=== PATIENT | female | born 1955 | race Two or more races ===

== ENCOUNTER → 2016-07-27 | Outpatient (CLI) | payer OTHER ==
--- NOTE | 2016-07-27 17:52 | RADRPT ---
PROCEDURE: XR Knees. CLINICAL INDICATION: Bilateral knee pain. TECHNIQUE: Total of six views. Frontal, oblique, and lateral views of both knees. COMPARISON: No prior study is available for comparison. FINDINGS: There is no fracture or dislocation. The soft tissues are normal. There are degenerative changes with osteophytes arising from all 3 joint compartment margins bilater ally. There is bilateral medial joint compartment narrowing, subarticular sclerosis, and deformity. There is chondrocalcinosis. There is no lytic or blastic lesion. There is no radiopaque foreign body. IMPRESSION: 1. Severe degenerative changes of both knees. 2. No acute abnormality. RPTAT: QQ .Brian Paul MD, MD Date Time Electronically viewed and signed by .Brian Paul MD, on 07/27/2016 17:52 .R/
--- NOTE | 2016-07-28 04:42 | HKNOTE ---
DATE OF SERVICE: 07/27/2016 REFERRING PHYSICIAN: 1. Dr. Ashley Nicole. 2. Dr. Isabel West, [address] [place], [place] [address]. MAIN COMPLAINT: Pain in both knees. HISTORY OF MAIN COMPLAINT: Patient is a 61-year-old female who complains of pain in both knees blanca he has been present for 20 years. There has been no history of injury to the knee. She has had prog ressively increasing pain in the knees. The left knee is worse than the right knee and she has been referred here today predominantly for reevaluation of her left knee. The patient has had multiple cortisone injections into both knees. The last was in September of 2015, w antoni gave her no relief at all. She states she has had at least 5 cortisone injections into the lef t knee. PRESENT COMPLAINTS: The pain is described as severe over the past 6 months. The pain is mainly loc alized to her left knee. She does note, however, that she occasionally gets pain radiating from her left buttocks to the knee. She has no numbness or tingling in her legs. She never had a history o f problems with her lower back. The pain in the left knee is currently described as "severe" and is aggravated by walking, weightbearing and stair climbing. She does get night pain which wakes her u p. She takes Motrin and Tylenol for the pain. This does not help her at all. At present, nothing seems to give her any relief of the pain. On a flat and level surface, she can walk no more than 1 block at a time. She uses a walker at all times. She gets pain with every step that she takes. S he limps most of the time. She does not have a shoe lift. She can clip her toenails and tie her sh oelaces. PAST ORTHOPEDIC HISTORY PREVIOUS ORTHOPEDIC OPERATIONS: None. PRIOR CORTISONE INTAKE: As above. ALCOHOL INTAKE: None. OTHER JOINT PROBLEMS: None. BLOOD TESTS FOR ARTHRITIS: None. PRIOR INJURIES TO HIPS OR KNEES: None. WORK STATUS: Not applicable. PAST MEDICAL HISTORY: 1. Hypertension. 2. Diabetes. 3. Hypercholesterolemia. 4. Morbid obesity. PAST SURGICAL HISTORY: section. DRUG ALLERGIES: NONE. MEDICATIONS: 1. Ibuprofen 800 mg twice a day. 2. Metoprolol 50 mg once or twice a day. 3. Hydrochlorothiazide 50 mg once a day. Loratadine 10 mg once a day. 4. Metformin 500 mg once a day. 5. Simvastatin 40 mg once a day. FAMILY HISTORY: Both parents at unstated ages and of unstated causes. SYSTEMS REVIEW: Prone to severe headaches and dizzy spells, excess urination, excess night urinatio n, tingling sensations in her hands. Otherwise, entirely negative. HABITS: Patient does not smoke or drink alcoholic beverages. 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 Isabel West, [address] [place], [place] [address]. PHYSICAL EXAMINATION GENERAL: The patient comes in with her daughter. Her daughter translates for her. The patient has a walker. She can barely walk. It is almost impossible to get her up on the examination couch but we persevered and finally got her up. She refused to have her blood pressure taken. VITAL SIGNS: Height 5 feet, weight 253 pounds. HIPS: Both hips have a full range of motion without pain. LEFT KNEE: The left knee shows varus alignment. Active and passive extension lacks 20 degrees. Acti ve and passive flexion is 100 degrees. The medial and lateral collateral ligaments and cruciate liga ments are intact. Adolfo test is negative. There is 6+ crepitus at the knee; none at the patella. There is no effusion, tenderness, scarring, or cysts. The patella tracks normally. There is no tend erness on the articular surface of the patella or in the patellar groove. The Q angle is normal. RIGHT KNEE: The right knee shows varus alignment. Active and passive extension lacks 10 degrees. Ac tive and passive flexion is to 100 degrees. The medial and lateral collateral ligaments and cruciate ligaments are intact. Adolfo test is negative. There is 6+ crepitus at the knee; none at the bernard la. There is no effusion, tenderness, scarring, or cysts. The patella tracks normally. There is n o tenderness on the articular surface of the patella or in the patellar groove. The Q angle is jennifer l. IMAGING: Plain x-rays of her left knee obtained today were reviewed (3 views). These show exceedin gly severe degenerative osteoarthritis of the left knee affecting most predominantly the medial comp artment. Exceedingly severe degenerative osteoarthritis of the medial compartment and patellofemora l joint with gaet-tg-pmyj contact and erosion. Osteophyte formation, subchondral sclerosis. Osteop orosis. DIAGNOSES 1. Exceedingly severe degenerative osteoarthritis of the left knee. 2. Degenerative osteoarthritis of the right knee. 3. Hypertension. 4. Diabetes. 5. Hypercholesterolemia. MANAGEMENT: The patient is advised that she most certainly is a candidate for a knee replacement op eration on the left side and eventually also on the right side. The operation was discussed with her and her daughter in a fair amount of detail. The patient speak s no Prydeinig. The daughter translated for he. The patient was given my manual titled "Arthritis of the Knee Joint" which contains information conc erning the various alternatives of treatment. It includes various forms of conservative treatment, i ncluding the use of nonsteroidal anti-inflammatory medications and their dangers. Various surgical a lternatives are discussed. The technique of total knee replacement is discussed in detail, including possible complications. Included also is a section on the possible complications of blood transfusi on, a section on postoperative precautions, and an exercise program to follow at home after total kn ee replacement. The long-term care of a total knee replacement implant is also covered in detail. Th e patient was instructed to read this manual in its entirety since it is, in and of itself, a form o f informed consent. After reading this manual, the patient will make a list of further questions mery t may not have been covered adequately. The patient was further advised that this manual, although e xhaustive in nature, is only intended to supplement and complement a one-on-one discussion with me. Daughter was referred to my website, [employer]. FINAL DIAGNOSES 1. Exceedingly severe degenerative osteoarthritis of the left knee. 2. Degenerative osteoarthritis of the right knee. 3. Hypertension. 4. Diabetes. 5. Hypercholesterolemia. The patient's surgery will be scheduled to be performed in the near future. Dictated By: LUBA RUIZ/JASMETE Conf#: [id number] DID#: [id number] CC: Ashley Nicole;*EndCC*
--- NOTE | 2016-07-28 04:43 | HKNOTE ---
DATE OF SERVICE: 07/27/2016 Dr. Ashley Nicole Dear Dr. Nicole, Thank you for referring Emy Ayers who was seen in my office today complaining of pain her lef t knee. She has exceedingly severe arthritis of the left knee. She is a candidate for knee replacement surgery, which will be scheduled to be performed in the near future. Thank you for confidence in referring her to my care. Enclosed a copy of my office notes for your records. With warmest regards, Dictated By: LUBA RUIZ/JASMEET Conf#: [id number] DID#: [id number]
--- NOTE | 2016-07-28 04:44 | HKNOTE ---
DATE OF SERVICE: 07/27/2016 Dr. Isabel West [address] [address], [place] [address] West, Thank you for referring Emy Ayers who was seen in my office today complaining of pain her lef t knee. She has exceedingly severe arthritis of the left knee. She is a candidate for knee replacement surgery, which will be scheduled to be performed in the near future. Thank you for confidence in referring her to my care. Enclosed a copy of my office notes for your records. With warmest regards, Dictated By: LUBA HERNANDEZ MD HH/NTS Conf#: [id number] DID#: [id number]
== END | disposition home or self-care (01) ==
LOC: HKI 15:22
DX: M25.562 Pain in left knee (principal); M13.862 Other specified arthritis, left knee
CPT/HCPCS: 73562; Z7500; G0463

== ENCOUNTER → 2016-08-24 | Outpatient (CLI) | payer OTHER ==
[~2016-08-24] MED LIST: HYDR50TA3 PO; METF500T4 PO; METO-429 PO; SIMV40TA7 PO
--- NOTE | 2016-08-24 18:25 | HKNOTE ---
DATE OF SERVICE: 08/24/2016 Patient comes in for preoperative evaluation. She is scheduled to have a left total knee replacemen t on 08/25/2016. She has been cleared for surgery by Dr. Isabel West. She has not given any blood for autotransfusion. She understands the risks associated with hospital blood. She is agreeable t o using hospital blood if needed. The patient still does not speak a word of Nigerien and her daught er who came with her today and she speaks perfect Romansh and Nigerien. Patient has no further questions to ask me. She says that my therapy administrative assistant, Reynaldo, answered all her q uestions. Dictated By: LUBA RUIZ/NTS Conf#: [id number] DID#: [id number]
== END | disposition home or self-care (01) ==
LOC: HKI 14:18
DX: Z01.818 Encounter for other preprocedural examination (principal)
CPT/HCPCS: G0463

== ENCOUNTER 2016-08-25 05:40 | Inpatient (IN) | payer OTHER ==
[2016-08-25] VITALS (20 sets, daily range): BP systolic 104–147; BP diastolic 47–72; PULSE 60–97; RESP 12–19; Ht 152.4 cm; Wt 115.8 kg
[~2016-08-25] VITALS: Ht 152.4 cm; Wt 115.8 kg
[2016-08-25] MEDS ORDERED: VANCOMYCIN 1 GM (PMX) 250 ML IVPB ONE (06:00)
[2016-08-25] MEDS ORDERED: TRANEXAMIC ACID 2,000 MG in SOD CHLORIDE 0.9% 100 ML IVPB ONE (06:00)
[2016-08-25] MEDS ORDERED: DEXAMETHASONE 4 MG/ML 1 ML INJ IV ONE (06:00)
[2016-08-25] MEDS ORDERED: LANSOPRAZOLE 30 MG CAP PO ONE (06:00)
[2016-08-25] MEDS ORDERED: oxyCODONE (CR) 10 MG TAB [oxyCONTIN] PO ONE (06:00)
[2016-08-25] MEDS ORDERED: ACETAMINOPHEN 1000MG/100ML IV 100 ML IVPB ONE (06:00)
[2016-08-25] MEDS ORDERED: LACTATED RINGER'S 1,000 ML IV* SCH (06:00)
[2016-08-25] MEDS ORDERED: CELECOXIB 200 MG CAP PO ONE (06:00)
[2016-08-25] MEDS ORDERED: ONDANSETRON 4 MG INJ IV ONE (06:00)
[2016-08-25] MEDS ORDERED: SUCCINYLCHOLINE CHLORIDE 100 MG/5 ML SYG IV ONE (07:00)
[2016-08-25] MEDS ORDERED: BUPIVACAINE 0.25%/EPI (SDV) 30 ML INJ ONE ×2 (07:06→08:57)
[2016-08-25] MEDS ORDERED: METHYLENE BLUE 10 MG/ML VIAL ONE (07:06)
[2016-08-25] MEDS ORDERED: ROPIVACAINE 0.2% 100 ML ONE (07:06)
[2016-08-25] MEDS ORDERED: POLYMYXIN B 500000 UNIT INJ ONE (07:07)
[2016-08-25] MEDS ORDERED: VANCOMYCIN 1 GM INJ ONE (07:07)
[2016-08-25] MEDS ORDERED: BACITRACIN 50000 UNITS INJ ONE (07:09)
[2016-08-25] MEDS ORDERED: METO-429 PO (07:10)
[2016-08-25] MEDS ORDERED: METF500T4 PO (07:10)
[2016-08-25] MEDS ORDERED: HYDR50TA3 PO (07:10)
[2016-08-25] MEDS ORDERED: SIMV40TA7 PO (07:10)
[2016-08-25] MEDS ORDERED: NEOSTIGMINE 3 MG/3 ML SYRINGE ONE (07:16)
[2016-08-25] MEDS ORDERED: GLYCOPYRROLATE 0.4 MG INJ ONE (07:16)
[2016-08-25] MEDS ORDERED: LIDOCAINE 2% (SDV) 5 ML INJ ONE (07:16)
[2016-08-25] MEDS ORDERED: ROCURONIUM 50 MG INJ ONE (07:16)
[2016-08-25] MEDS ORDERED: FENTAnyl 50 MCG/ML VIAL ONE ×2 (07:16→09:39)
[2016-08-25] MEDS ORDERED: MIDAZOLAM 1 MG/ML 2 ML INJ ONE (07:16)
[2016-08-25] MEDS ORDERED: PROPOFOL 20 ML ONE (07:16)
[2016-08-25] MEDS ORDERED: DEXAMETHASONE 4 MG/ML 1 ML INJ ONE (07:22)
[2016-08-25] MEDS ORDERED: LIDOCAINE 2%/EPI 30 ML INJ ONE (07:22)
[2016-08-25] MEDS ORDERED: ONDANSETRON 4 MG INJ ONE (07:22)
[2016-08-25] MEDS ORDERED: ATROPINE 1 MG/10 ML SYRINGE IV PRN (07:30)
[2016-08-25] MEDS ORDERED: FENTAnyl 50 MCG/ML VIAL IV PRN ×2 (07:30)
[2016-08-25] MEDS ORDERED: ONDANSETRON 4 MG INJ IV PRN (07:30)
[2016-08-25] MEDS ORDERED: LABETALOL HCL 20MG INJ IV PRN (07:30)
[2016-08-25] MEDS ORDERED: HYDROmorphONE (0.2 MG/ML) 10ML SYG IV PRN ×3 (07:30)
[2016-08-25] MEDS ORDERED: DIPHENHYDRAMINE 50 MG INJ IV PRN (07:30)
[2016-08-25] MEDS ORDERED: OXYCODONE/ACETAMINOPHEN (5/325) TAB PO PRN ×2 (07:30)
[2016-08-25] MEDS ORDERED: MEPERIDINE 25 MG INJ IV PRN (07:30)
[2016-08-25] MEDS ORDERED: morphine (1 MG/ML) 10ML SYRINGE IV PRN ×3 (07:30)
[2016-08-25] MEDS ORDERED: EPHEDrine SULFATE 50 MG/5 ML SYG IV PRN (07:30)
[2016-08-25] MEDS ORDERED: MIDAZOLAM 1 MG/ML 2 ML INJ IV PRN (07:30)
[2016-08-25] MEDS ORDERED: hydrALAzine 20 MG INJ IV PRN (07:30)
[2016-08-25] MEDS ORDERED: TOBRAMYCIN 1.2 GM POWDER ONE (07:40)
[2016-08-25] MEDS ORDERED: TRIAMCINOLONE ACET 40 MG/ML INJ ONE (07:40)
[2016-08-25] MEDS ORDERED: KNEE PAIN COCKTAIL VANCO INJ SCH ×6 (08:00)
[2016-08-25] MEDS ORDERED: SOD CHLORIDE 0.9% 50 ML, TRANEXAMIC ACID 2,000 MG IRR SCH ×2 (08:00)
[2016-08-25] MEDS ORDERED: hydrALAzine 20 MG INJ ONE (08:49)
[2016-08-25] MEDS ORDERED: ROPIVACAINE 0.2% 100ML BAG INJ ONE (09:51)
--- NOTE | 2016-08-25 10:50 | RADRPT ---
PROCEDURE: Left knee x-ray. CLINICAL INDICATION: Intraoperative localization for knee replacement procedure. TECHNIQUE: 3 images obtained intraoperatively during the intraoperative procedure. COMPARISON: None available FINDINGS: 3 images were obtained intraoperatively for localization during the procedure. The procedure was pe rformed by Dr. Garcia; 7 seconds of intraoperative fluoroscopy was used. Surgical hardware is se en in place. No fracture is identified. IMPRESSION: 3 intraoperative images and 7 seconds of fluoroscopy used during left total knee replacement. Hardware in place. No fracture identified. RPTAT:HGDB .Jose Angel House MD, MD Date Time Electronically viewed and signed by .Jose Angel House MD, MD on 08/25/2016 10:50 .B/
[2016-08-25] MEDS ORDERED: FUROSEMIDE 20 MG INJ ONE (11:05)
--- NOTE | 2016-08-25 12:28 | RADRPT ---
PROCEDURE: Right knee x-ray. CLINICAL INDICATION: Intraoperative localization for knee replacement procedure. TECHNIQUE: Lateral image obtained intraoperatively during the intraoperative procedure. COMPARISON: None available FINDINGS: Lateral image was obtained intraoperatively for localization during the procedure. The procedure wa s performed by Dr. Garcia; Surgical hardware is seen in place. No fracture is identified. IMPRESSION: Intraoperative lateral image obtained during total knee replacement Hardware in place. No fracture identified RPTAT:DB .Jose Angel House MD, MD Date Time Electronically viewed and signed by .Jose Angel House MD, on 08/25/2016 12:28 .B/
[2016-08-25] MEDS ORDERED: DEXTROSE 5%-LR 1,000 ML IV SCH (12:53)
[2016-08-25] MEDS ORDERED: TRANEXAMIC ACID IVPB ONE ×4 (13:00)
[2016-08-25] MEDS ORDERED: SOD CHLORIDE 0.9% IVPB ONE ×4 (13:00)
[2016-08-25] MEDS ORDERED: DOCUSATE SODIUM 100 MG CAP PO ONE (13:00)
[2016-08-25] MEDS ORDERED: DIPHENHYDRAMINE 50 MG INJ IM PRN (13:00)
[2016-08-25] MEDS ORDERED: NALOXONE (0.4 MG/ML) INJ IV PRN (13:00)
[2016-08-25] MEDS ORDERED: MEPERIDINE 10 MG/ML 30 ML PCA IV PRN (13:00)
[2016-08-25] MEDS ORDERED: MAGNESIUM HYDROXIDE 30ML CUP PO PRN (13:00)
[2016-08-25] MEDS ORDERED: HYDROmorphONE 0.2 MG/ML PCA IV PRN (13:00)
[2016-08-25] MEDS ORDERED: BISACODYL 10 MG SUPP PR PRN (13:00)
[2016-08-25] MEDS ORDERED: BETHANECHOL 25 MG TAB PO PRN (13:00)
[2016-08-25] MEDS ORDERED: ZOLPIDEM 5 MG TAB PO PRN (13:00)
[2016-08-25] MEDS ORDERED: COUMADIN NOTE XX SCH (13:00)
[2016-08-25] MEDS ORDERED: SENNA/DOCUSATE NA (8.6MG/50MG) TAB PO PRN (13:00)
[2016-08-25] MEDS ORDERED: oxyCODONE 5 MG TAB PO PRN ×2 (13:00)
[2016-08-25] MEDS ORDERED: NA PHOSPHATE/BIPHOS 133 ML ENEMA PR PRN (13:00)
[2016-08-25] MEDS ORDERED: ASPIRIN (EC) 325 MG TAB PO ONE (13:00)
--- NOTE | 2016-08-25 13:01 | PDOCDIS ---
Discharge Instructions DIAGNOSIS Discharge Diagnosis: Status post left total knee replacement CONDITION Patient Condition: Stable HOME CARE INSTRUCTIONS: Diet Instructions: Regular ACTIVITY: Activity Restrictions: Slowly Increase Activity Rest between Activity Avoid heavy lifting No Sexual Activity Do not Drive Do not operate Machinery Avoid Heavy Housework Keep Limb Elevated Weight Bearing (As tolerated. Use of front wheeled walker if needed.) Bathing Restrictions: Shower (With Tegaderm dressing applied before shower. After area has been dried after shower, may remove Tegaderm. Do this daily until maryam are removed around 10 days postop.) FOLLOW UP/APPOINTMENTS Appointments September 14 at 2:45 PM. NANCY LLANOS PA-C Aug 25, 2016 13:01
--- NOTE | 2016-08-25 13:03 | DS ---
Date/Time of Note Date/Time of Note DATE: 08/25/16 TIME: 13:01 Discharge Summary Admission/Discharge Info Admit Date/Time Aug 25, 2016 at 05:40 Discharge Date/Time Aug 28, 2016 Final Diagnosis Status post left total knee replacement. Patient Condition: Stable Hospital Course On the day of admission, the patient underwent left total knee arthroplasty Intraoperative complications: None Postoperative complications: None The patient was given prophylactic antibiotics and anticoagulants. On the day of surgery and first postoperative day patient was started on gait training and was taught usual restrictions following knee replacement Suction drain removed on the first postoperative day and the dressings were changed. The wound was found to be clean and healing well. There was no sign of infection. Pain cocktail given. On the second postoperative day, patient continued with inpatient PT. Dressings were changed. Wound was found to be clean and healing well. No signs of infection. Pain cocktail given. There was some luis alfredo-incisional erythema so as precaution, vancomycin was administered. On the day of discharge, the wound was clean and healing well; there was no sign of infection. The dressings were changed. Pain cocktail was given and cocktail drains were removed. Discharge Temperature: 98.2 Discharge White Blood Cell Count: 6.8 Discharge Hemoglobin: 10.7 The patient was discharged home. Arrangements were made for visiting nurses and home health/physical therapy. The patient will be seen in office at scheduled postoperative evaluation date given on their preoperative exam (September 14, 2016 at 2:45 PM). Should patient complain of any problems prior to scheduled postoperative evaluation date, they may call into outpatient clinic to determine if they need to be scheduled at sooner appointment to be seen immediately if needed. Tegaderm dressings provided for patient today. Instructions given. Apply Tegaderm dressing prior to shower. After shower make sure there is completely dry before removing Tegaderm dressing. Do this until maryam are removed around 10 days postop. Discharge medications: As per medication reconciliation form Diet: Same as preadmission diet. This is Nancy Villar PA-C dictating discharge summary for Dr. Suleiman Garcia. Home Meds Reported Medications Metformin* (Glucophage*) 500 Mg Tab, 500 MG PO BID, #60 08/25/16 Hydrochlorothiazide* (Hydrochlorothiazide*) 50 Mg Tab, 50 MG PO DAILY, #30 08/25/16 Metoprolol Tartrate* (Lopressor*) 50 Mg Tab, 50 MG PO BID, #60 08/25/16 Simvastatin (Simvastatin) 40 Mg Tablet, 40 MG PO HS, #60 08/25/16 Follow-up Plan Follow-up on September 14, 2016 at 2:45 PM. Pending Labs Laboratory Tests Test 08/25/16 06:35 Bedside Glucose 153mg/dL (70-220) NANCY LLANOS PA-C Aug 25, 2016 13:03
[2016-08-25] MEDS: ONDANSETRON 4 MG INJ IV SCH ×2 (13:51→18:28)
[2016-08-25] MEDS: CEFAZOLIN 1 GM/50 ML (PMX) 50 ML IVPB SCH ×2 (13:51→20:24)
[2016-08-25] MEDS: ACETAMINOPHEN 1000MG/100ML IV 100 ML IVPB SCH ×2 (13:52→20:07)
--- NOTE | 2016-08-25 15:21 | RADRPT ---
PROCEDURE: XR Knee. CLINICAL INDICATION: Postop TECHNIQUE: AP and lateral views of the left knee are available for review. COMPARISON: None available FINDINGS: A constrained, cemented left total knee arthroplasty is present in near anatomic alignment without a cute radiographic abnormality. Recent surgical changes seen in the soft tissues. IMPRESSION: 1. Constrained, left total knee arthroplasty in near anatomic alignment without acute radiographic abnormality RPTAT: AA .Anthony Schuster MD, MD Date Time Electronically viewed and signed by .Anthony Schuster MD, MD on 08/25/2016 15:21 .d/
--- NOTE | 2016-08-25 18:16 | CONS ---
DATE OF ADMISSION: 08/25/2016 DATE OF CONSULTATION: 08/25/2016 MEDICAL CONSULTATION CHIEF COMPLAINT: A 61-year-old female brought in for elective left total knee replacement. HISTORY OF PRESENT ILLNESS: A 61-year-old female with past medical history of high cholesterol, typ e 2 diabetes, obesity, hypertension, and arthritis who was brought in for elective left total knee r eplacement that was performed earlier today. The patient has been having left knee pain for many ye ars. It became worse in the last 2 months. She was having decreased ambulation status her primary care doctor referred her to orthopedic surgery team who scheduled her today for the left total knee replacement. She has been denying any chest pain or shortness of breath. No fevers or chills. No upper or lower GI bleeding. No headaches or dizziness or loss of consciousness. She has been havin g obviously positive left knee pain. PAST MEDICAL HISTORY: As stated above. ALLERGIES: NO KNOWN DRUG ALLERGIES. MEDICATIONS AT HOME: 1. Metoprolol 50 mg b.i.d. 2. Simvastatin 40 mg at bedtime. 3. Hydrochlorothiazide 50 mg daily. 4. Metformin 500 mg b.i.d. PAST SURGICAL HISTORY: In addition to the knee surgery, she has had liposuction surgery many years ago and also in the past. FAMILY HISTORY: Noncontributory. SOCIAL HISTORY: Negative for smoking, drinking, or IV drug use. PHYSICAL EXAMINATION: VITAL SIGNS: Stable. GENERAL: The patient is lying in bed, family members at the bedside. No acute distress. HEENT: Pupils equal, round, react to light. Extraocular muscles intact. NECK: Supple, no thyromegaly. LUNGS: Clear to auscultation bilaterally. CARDIOVASCULAR: S1, S2 heard. No rubs or gallops. ABDOMEN: Soft, nontender, nondistended. Normal bowel sounds. No rebound or guarding. MUSCULOSKELETAL: Decreased range of motion of left lower extremity. NEUROLOGIC: No focal deficits. LABORATORIES: There is no CBC or basic metabolic panel from today. The latest left knee x-ray show s constrained left total knee arthroplasty in near anatomic alignment but no acute radiographic abno rmality. ASSESSMENT AND PLAN: A 61-year-old female coming in for elective left total knee replacement after many years of arthritis. 1. Knee replacement that occurred earlier today. Continue pain control medications and IV fluids a nd rehabilitation and physical therapy per orthopedic surgery recommendations. We will follow along with them. 2. Type 2 diabetes. We will add insulin sliding scale to the regimen. 3. Hypertension. We will add p.r.n. hydralazine to the patient's medicines. We may need to consid er slowly reintroducing her home blood pressure medicines in the next few days. 4. History of high cholesterol. Consider checking lipid panel. Continue to monitor for now. 5. We will continue to follow along with you. Dictated By: FLAVIA DAVIS/JASMEET Conf#: [id number] DID#: [id number]
[2016-08-25] MEDS ORDERED: DEXTROSE 50% 50 ML SYRINGE IV PRN ×2 (18:30)
[2016-08-25] MEDS ORDERED: GLUCOSE GEL 15 GRAM TUBE BUCCAL PRN (18:30)
[2016-08-25] MEDS ORDERED: GLUCAGON 1 MG INJ IM PRN (18:30)
[2016-08-25] MEDS ORDERED: GLUCOSE GEL 15 GRAM TUBE PO PRN ×2 (18:30)
[2016-08-25] MEDS: INSULIN ASPART [NOVOLOG] 3 ML PEN SC SCH (20:14)
[2016-08-26] MEDS: ONDANSETRON 4 MG INJ IV SCH ×2 (01:00→06:13)
[2016-08-26] MEDS: ACCUCHECK XX SCH (01:47)
[2016-08-26 05:08] LABS: ADD SCAN DIFF NO
[2016-08-26 05:24] LABS: BASOPHILS % 0.1 % (0.0-2.0); HEMATOCRIT 34.9 % (37.0-47.0); HEMOGLOBIN 11.9 g/dl (12.0-16.0); LYMPHOCYTES # 1.3 10^3/ul (0.8-2.9); LYMPHOCYTES % 14.7 % (15.0-51.0); MEAN CORPUSCULAR HEMOGLOBIN 32.3 pg (29.0-33.0); MEAN CORPUSCULAR HGB CONC 34.1 g/dl (32.0-37.0); MEAN CORPUSCULAR VOLUME 94.8 fl (82.0-101.0); MEAN PLATELET VOLUME 11.8 fl (7.4-10.4); MONOCYTE # 0.9 10^3/ul (0.3-0.9); MONOCYTES % 9.6 % (0.0-11.0); NEUTROPHIL # 6.8 10^3/ul (1.6-7.5); NEUTROPHILS % 75.2 % (39.0-77.0); PLATELET COUNT 180 10^3/UL (140-415); RED BLOOD COUNT 3.68 10^6/ul (4.20-5.40); RED CELL DISTRIBUTION WIDTH 12.5 % (11.5-14.5); WHITE BLOOD COUNT 9.1 10^3/ul (4.8-10.8)
[2016-08-26] MEDS: CEFAZOLIN 1 GM/50 ML (PMX) 50 ML IVPB SCH (05:44)
--- NOTE | 2016-08-26 05:58 | OPR ---
DATE OF OPERATION: SURGEON: Suleiman Garcia MD SHERIFF DETECTIVE: VENECIA Wiley ANESTHESIOLOGIST: Dr. Bob. PREOPERATIVE DIAGNOSIS: Exceedingly severe degenerative osteoarthritis of the left knee. POSTOPERATIVE DIAGNOSIS: Exceedingly severe degenerative osteoarthritis of the left knee. OPERATION PERFORMED: Total knee replacement (arthroplasty of the knee, condylar plateau medial and lateral compartments with patella resurfacing, CPT 41118). FINDINGS AT SURGERY: The patient was found to have exceedingly severe arthritis of the left knee. All 3 compartments were affected. Medial compartment was most severely affected with huge osteophyt es around the entire periphery of the distal femur and the intercondylar notch was almost overgrown with osteophytes. Intraoperative photograph was taken to confirm the degree of arthritis. The bone quality was good, which is expected for a female of her age. Note that she looks very much older t toscano her stated age. JUSTIFICATION FOR SURGERY: The knee was found to have end-stage osteoarthritis. The patient is a v ligia active 61-year-old whose activities of daily living are markedly affected by the arthritic knee. An extensive course of conservative care has been tried prior to embarking on the knee replacement operation. There can be no reasonable expectation that any further conservative treatment will ivon e any improvement to this patient's pain level and lifestyle. The risks and complications of the lima rgery were discussed with the patient at the preoperative visit as well as the risks and possible co mplications of blood transfusion using hospital blood. The patient is agreeable to using hospital b lood if needed. DESCRIPTION OF PROCEDURE: The patient was given intravenous antibiotics 1 hour prior to surgery. A n epidural anesthetic was initiated in the ICU holding area. The patient was taken to the operating room and given a light general anesthetic. The leg, foot, and ankle were prepared and draped in th e usual sterile fashion. The center of the ankle was marked at the midpoint between the 2 malleoli with a sterile marking pen. A tourniquet around the thigh was inflated to 250 mmHg after the leg reid d been exsanguinated using an Esmarch bandage. The tourniquet was inflated at the initiation of pro cedure for a short period and was then again reinflated at the time of cementing the components part s. The total tourniquet time was 51 minutes. A longitudinal incision was made over the anterior aspect of the knee. The incision extended from t he tibial tubercle to a point just above the patella. The medial capsule was exposed by sharp and b wilfredo dissection, and was incised 1/4 inch medial to the patella. A marking stitch was set on each s kate of the incision at the midpoint of the capsule so as to enable accurate reapproximation at the e nd of the operation. A vastus split was made in the vastus medialis extending from the superior piero e of the patella for approximately 5 cm between the line with the muscle fibers. The ends of the mu scle split at the patella were marked with a marking stitch on each side for later accurate reapprox imation. The patella was reflected laterally and osteophytes around the rim of the patella were rem archana. Osteophytes along the lateral femoral condyle were removed so as to facilitate lateral reflec tion of the patella. Posteromedial osteophytes were removed on the lateral side as well, so as to f ree up the lateral collateral ligament. Medial femoral osteophytes and posteromedial femoral osteop hytes were also removed at this time. This allowed for the knee to be brought into a more normal al ignment. A segment of bone was cut from the articular surface of the patella using a caliper to det ermine the exact thickness to be removed. The remaining thickness of the patella was 16 mm. The kn ee was flexed, and the patella was displaced laterally without eversion. Osteophytes in the femoral notch were removed. The remnants of the medial and lateral menisci were excised and the cruciate l igaments were excised. The medial collateral ligament was elevated as an osteo-periosteal flap from the proximal tibia. The distal end of the medial collateral ligament remained attached to the tibi a throughout the operation. The tibia was retracted forward with Hohmann retractor, inserted sound recording technician ior to the midpoint of the proximal tibia. The tibial jig was set in place in such a way as to alig n longitudinally with the anterior tibial spine, with the junction of the middle and medial 2/3 of t he patella tendon, and with the posterior intercondylar eminence of the tibia. An AP and lateral x- ray was obtained with the alignment jig in place. This showed that the alignment was satisfactory a fter some slight adjustments were made. The posterior slope of the tibia was set at 6 degrees. The tibial cutting block was attached to the proximal tibia with 2 Steinmann pins. An external alignme nt arash was placed on the cutting block to confirm the alignment of the cutting block. An Chay Wing feeler gauge was now placed on the superior aspect of the cutting block to further confirm the post erior slope of the tibia and the depth of the cut to be made. An oscillating saw was used to remove an appropriate amount of bone from the proximal tibia with the healthy side being used to measure t he cutting depth. The lateral femoral condyle of the distal femur was measured to determine the manan ropriate size for the femoral component. The anterior condyle of the femur was partially removed wi th a rongeur. A medium-sized cutting block was attached to the distal femur with 2 Steinmann pins t hrough the pin holes in the block. The external alignment jig of this cutting block was lined up wi th the anterior surface of the femur and a central intercondylar hole for the intramedullary arash was drilled through the hole in the alignment block. The block was removed. A long [place] nozzle wa s used to flush fat from the intramedullary canal. The appropriately sized cutting block was now at tached to the femur by means of an intramedullary arash. The linking guide was inserted into the slot in the base of the femoral cutting block with the knee set at 90 degrees of flexion and with the li nking guide set flush with the proximal tibial cut in order to set the appropriate rotational alignm ent on the femoral cutting block. Ligament balance was checked at this point and was found to be ve ry satisfactory. Once the rotational alignment had been determined, and the ligaments found to be b alanced, the femoral cutting block was secured to the distal femur with 2 Steinmann pins. The anter ior and posterior cuts of the distal femur were made off the femoral cutting block. The cutting blo ck was removed and a spacer block was used to measure the flexion gap which was found to be 12.5 mm. The same spacer block size without the femoral element was used with the leg in extension to determi ne the amount of distal femur to be removed in the transverse plane. A 5-degree distal cutting bloc k was now set on the femoral intramedullary arash, and the arash was inserted into the intramedullary ca nal. The appropriate amount of bone to be removed was determined. The femoral cutting block was pi nned to the anterior surface of the femur with 2 Steinmann pins. The appropriate amount of bone was resected off the distal femur to give an extension gap equal to the thickness of the flexion gap. The cut needed to be repeated after initial cut in order to produce an extension gap the same size a s the flexion gap. By using the appropriate cutting blocks, the rest of the femoral cuts were made. The femoral trial component was installed and was found to fit perfectly. The femoral trial component was removed. T he proximal tibia was sized, and the appropriate tibial tray selected. The central fixation hole in the tibia was made using the tibial tray template and the appropriate instruments. The femoral and tibial trials and the trial tibial insert were installed, and the patella was prepared to accept th e 32 mm patellar dome component. The trial components were all removed. The tourniquet was inflate d. Soft tissues around the knee, especially the posterior capsule, were injected with a mixture of Naropin, Toradol, morphine, and clonidine. The cut surfaces of the bones were cleaned with pulsatil e Water Jet lavage and thoroughly dried. Sclerotic bone surfaces were drilled with a 1/8-inch drill . The tibial trial component was installed with methyl methacrylate cement followed by the femoral component and finally the patellar component. Cement was used on all 3 components. The cement was finger packed into the cut surfaces of the bone and pressurized with a rubber dam in order to get go od interdigitation of the cement into the bone. A lateral x-ray of the knee was obtained while the cement was hardening with the anticipated appropriate spacer trial in place. The x-ray was taken wit h the [address], and it showed that the knee was in full extension Once the cement was hard, all extraneous cement was removed. The cut edges of the medial capsule were held together at the midpoint with a towel clip, and the knee was put through a full range of motion. The patella wa s found to track satisfactorily. A lateral release was not required. At this point, the patella wa s found to track very well in the patellar groove of the femoral component. The knee was frequently irrigated with normal saline containing antibiotics with pulsatile lavage th roughout the entire operation as a prophylactic measure against infection. Once the cement was hard , the tourniquet was released. Bleeding points were cauterized. The total tourniquet time was 31 m inutes. The patient's vital signs remained stable throughout the operation. The permanent rotating bearing was installed. Superficial and deep Hemovac drains were set in place . The wound was closed using interrupted Vicryl on the capsule with FiberWire used at strategic poi nts such as the attachment of the distal ends of the vastus medialis at the split, and the tibial te ndon was also attached to the osteo-periosteal flap with FiberWire. The rest of the medial capsule was closed with interrupted Vicryl. A subcuticular stitch was inserted and maryam were used on the skin. The usual sterile dressings were applied. A Jeff-Blandon compression dressing was applied a fter a sterile cooling pad had been set in place against the deep tissues by sterile cast padding. The patient's condition at the end of the procedure was satisfactory. Vital signs remained stable t hroughout the operation. The patient returned to the recovery room in stable condition. X-rays wer e obtained in the recovery room. Calf pumps were applied to both legs in the operating room. There were no problems or complications as far as we know. The sponge and instrument counts were correct . COMPONENT INFORMATION: KNEE IMPLANT TYPE: LCS. FEMORAL COMPONENT SIZE: Standard. TIBIAL COMPONENT SIZE: 1.5. PATELLAR COMPONENT SIZE: 32 mm dome. TIBIAL INSERT: 15 mm standard posterior stabilized mobile bearing. IMPLANT ASBESTOS SHINGLE ROOFER: [employer] [place], [place]. TOTAL TOURNIQUET TIME: 51 minutes. TOTAL BLOOD LOSS: Possibly 200 mL. Dictated By: SULEIMAN RUIZ/JASMEET Conf#: [id number] DID#: [id number]
[2016-08-26] MEDS ORDERED: KETOROLAC 15 MG INJ INJ PRN (06:00)
[2016-08-26] MEDS ORDERED: BUPIVACAINE 0.25%/EPI (SDV) 30 ML INJ INJ PRN (06:00)
[2016-08-26] MEDS: DEXAMETHASONE 4 MG/ML 1 ML INJ IV SCH (06:13)
[2016-08-26] MEDS: ACETAMINOPHEN 1000MG/100ML IV 100 ML IVPB SCH ×3 (06:13→21:19)
[2016-08-26 07:00] VITALS: BP 132/71; RESP 20
[2016-08-26 07:34] LABS: ADD UMIC YES; URINE BILIRUBIN (Dip) NEGATIVE (NEGATIVE); URINE BLOOD (Dip) TRACE (NEGATIVE); URINE COLOR LT. YELLOW (YELLOW); URINE GLUCOSE (Dip) NEGATIVE (NEGATIVE); URINE KETONES (Dip) NEGATIVE (NEGATIVE); URINE LEUKOCYTE ESTERASE (Dip) NEGATIVE (NEGATIVE); URINE NITRITE (Dip) NEGATIVE (NEGATIVE); URINE TOTAL PROTEIN (Dip) NEGATIVE (NEGATIVE); URINE UROBILINOGEN (Dip) 0.2 E.U./dL (0.1-1.0)
[2016-08-26 08:01] LABS: BACTERIA,URINE RARE
--- NOTE | 2016-08-26 08:39 | PN ---
Date/Time of Note Date/Time of Note DATE: 08/26/16 TIME: 08:38 Assessment/Plan Lines/Catheters IV Catheter Type (from Nrsg): Peripheral IV Osman in Place (from Nrsg): Yes Assessment/Plan Assessment/Plan POD # 1. Stable. -Drains d/c'd -Pain cocktail administered -OOB with PT -Pain meds -ASA/SCDs for DVT prophylaxis Subjective 24 Hr Interval Summary Resting comfortably. Minimal pain. Exam/Review of Systems Vital Signs Vitals Vital Signs Date Time Temp Pulse Resp B/P Pulse Ox O2 Delivery O2 Flow Rate FiO2 08/26/16 07:00 98.7 70 20 132/71 97 08/25/16 20:35 Nasal Cannula 2.0 Intake and Output 08/25/16 08/25/16 08/26/16 15:00 23:00 07:00 Intake Total 2600 ml 461.6 ml 850 ml Output Total 410 ml 1075 ml 1850 ml Balance 2190 ml -613.4 ml -1000 ml Results Free Text/Dictation Hemovac: 235 cc Dressing dry Incision clean, dry, and intact without redness or drainage 5/5 Tibialis Anterior, EHL, Gastroc Soleus, Peroneals Normal sensation Palpable DP/PT, CR < 2 Sec No distal edema Result Diagram: 08/26/16 0422 ANSON CRAFT MD Aug 26, 2016 08:39
[2016-08-26] MEDS: CELECOXIB 200 MG CAP PO SCH ×2 (08:46→21:19)
[2016-08-26] MEDS: ASPIRIN (EC) 325 MG TAB PO SCH ×2 (08:46→21:19)
[2016-08-26] MEDS: INSULIN ASPART [NOVOLOG] 3 ML PEN SC SCH ×4 (08:46→21:00)
[2016-08-26] MEDS: FERROUS FUMARATE (SR) TAB PO SCH ×2 (08:47→21:19)
[2016-08-26] MEDS: DOCUSATE SODIUM 100 MG CAP PO SCH ×2 (08:47→21:19)
[2016-08-26 11:55] VITALS: BP 137/81; PULSE 81; RESP 18
[2016-08-26] MEDS ORDERED: hydrALAzine 20 MG INJ IV PRN (12:30)
--- NOTE | 2016-08-26 12:31 | CONS ---
Date/Time of Note Date/Time of Note DATE: 08/26/16 TIME: 12:29 Consult Date/Type/Reason Admit Date/Time Aug 25, 2016 at 05:40 Initial Consult Date Subjective Per nursing, seen by ortho team earlier today, sitting in chair now. Objective Vital Signs Date Time Temp Pulse Resp B/P Pulse Ox O2 Delivery O2 Flow Rate FiO2 08/26/16 11:55 81 18 137/81 98 Room Air 08/26/16 07:00 98.7 08/25/16 20:35 2.0 Intake and Output 08/25/16 08/25/16 08/26/16 15:00 23:00 07:00 Intake Total 2600 ml 461.6 ml 850 ml Output Total 410 ml 1075 ml 1850 ml Balance 2190 ml -613.4 ml -1000 ml GENERAL: The patient is lying in bed, family members at the bedside. No acute distress. HEENT: Pupils equal, round, react to light. Extraocular muscles intact. NECK: Supple, no thyromegaly. LUNGS: Clear to auscultation bilaterally. CARDIOVASCULAR: S1, S2 heard. No rubs or gallops. ABDOMEN: Soft, nontender, nondistended. Normal bowel sounds. No rebound or guarding. MUSCULOSKELETAL: some decreased range of motion of left lower extremity. NEUROLOGIC: No focal deficits. Results/Medications Result Diagram: 08/26/16 0422 Results 24 hrs Laboratory Tests Test 08/25/16 17:46 08/25/16 20:10 08/26/16 01:36 08/26/16 04:22 Bedside Glucose 197 193 175 Basophils # 0.0 Basophils % 0.1 Eosinophils # 0.0 Eosinophils % 0.0 Hematocrit 34.9 L Hemoglobin 11.9 L Lymphocytes # 1.3 Lymphocytes % 14.7 L Mean Corpuscular Hemoglobin 32.3 Mean Corpuscular Hemoglobin Concent 34.1 Mean Corpuscular Volume 94.8 Mean Platelet Volume 11.8 H Monocytes # 0.9 Monocytes % 9.6 Neutrophils # 6.8 Neutrophils % 75.2 Nucleated Red Blood Cells # 0.0 Nucleated Red Blood Cells % 0.0 Platelet Count 180 Red Blood Count 3.68 L Red Cell Distribution Width 12.5 White Blood Count 9.1 Test 08/26/16 06:00 08/26/16 08:00 08/26/16 12:09 Urine Bacteria RARE Urine Bilirubin NEGATIVE Urine Clarity CLEAR Urine Color LT. YELLOW Urine Epithelial Cells RARE Urine Glucose NEGATIVE Urine Hemoglobin TRACE Urine Ketones NEGATIVE Urine Leukocyte Esterase NEGATIVE Urine Microscopic RBC 2-5 Urine Microscopic WBC 0-2 Urine Nitrite NEGATIVE Urine Specific [place] 1.010 Urine Total Protein NEGATIVE Urine Urobilinogen 0.2 E.U./dL Urine pH 6.0 Bedside Glucose 153 206 Medications Current Medications Hydromorphone HCl (Dilaudid JELLY MAKER) Q4PCA PRN IV SEVERE PAIN 8-10; Start 08/25/16 at 13:00; Stop 08/26/16 at 12:59 Meperidine HCl (Demerol JELLY MAKER) Q4PCA PRN IV SEVERE PAIN 8-10; Start 08/25/16 at 13:00; Stop 08/26/16 at 12:59 Oxycodone HCl (Roxicodone) 20 mg Q3H PRN PO PAIN LEVEL 8-10; Start 08/25/16 at 13:00 Oxycodone HCl (Roxicodone) 10 mg Q3H PRN PO PAIN LEVEL 4-7; Start 08/25/16 at 13 :00 Oxycodone HCl 5 mg 5 mg Q3H PRN PO PAIN LEVEL 1-3; Start 08/25/16 at 13:00 Acetaminophen (Ofirmev 1000mg/ 100ml Iv) 100 ml @ 400 mls/hr Q8H IVPB Last administered on 08/26/16 06:13; Admin Dose 400 MLS/HR; Start 08/25/16 at 13:00; Stop 08/27/16 at 05:14 Zolpidem Tartrate (Ambien) 5 mg HS PRN PO INSOMNIA; Start 08/25/16 at 13:00 Miscellaneous Information (Note) NOTE XX ; Start 08/25/16 at 13:00 Aspirin (Ecotrin) 325 mg BID PO Last administered on 08/26/16 08:46; Admin Dose 325 MG; Start 08/26/16 at 09:00 Celecoxib (Celebrex) 200 mg BID PO Last administered on 08/26/16 08:46; Admin Dose 200 MG; Start 08/26/16 at 09:00 Dexamethasone (Decadron) 4 mg DAILY@07 IV Last administered on 08/26/16 06:13; Admin Dose 4 MG; Start 08/26/16 at 07:00; Stop 08/29/16 at 06:59 Pantoprazole (Protonix Tab) 40 mg DAILY@06 PO ; Start 08/27/16 at 06:00 Docusate Sodium/ Ferrous Fumarate (Sohail-Sequels) 1 tab BID PO Last administered on 08/26/16 08:47; Admin Dose 1 TAB; Start 08/26/16 at 09:00 Docusate Sodium (Colace) 200 mg BID PO Last administered on 08/26/16 08:47; Admin Dose 200 MG; Start 08/26/16 at 09:00; Stop 08/29/16 at 08:59 Simethicone (Mylicon) 80 mg TID PRN PO DISTENSION/GAS/BLOATING; Start 08/25/16 at 13:00 Senna/Docusate Sodium (Senokot-S) 2 tab BID PRN PO CONSTIPATION; Start 08/25/16 at 13:00 Magnesium Hydroxide (Milk Of Mag) 30 ml HS PRN PO CONSTIPATION; Start 08/25/16 at 13:00 Bisacodyl (Dulcolax Supp) 10 mg DAILY PRN OK CONSTIPATION; Start 08/25/16 at 13: 00 Sodium Biphosphate/ Sodium Phosphate (Fleet Enema) 133 ml DAILY PRN OK CONSTIPATION; Start 08/25/16 at 13:00 Diphenhydramine HCl (Benadryl) 25 mg Q4H PRN IM ITCHING OR RASH; Start 08/25/16 at 13:00 Ketorolac Tromethamine (Toradol) 15 mg DAILY@06 PRN INJ ADMINSTER BY SURGEON ONLY; Start 08/26/16 at 06:00; Stop 08/30/16 at 05:59 Bupivacaine HCl/ Epinephrine Bitart (Marcaine 0.25%/ Epi (Sdv) 30 ml) 20 ml DAILY@06 PRN INJ ADMINSTER BY SURGEON ONLY; Start 08/26/16 at 06:00; Stop at 05:59 Naloxone HCl (Narcan) 0.2 mg Q2M PRN IV DECREASED REPIRATORY RATE; Start at 13:00 Diagnostic Test (Pha) (Accucheck) 1 ea 02 XX Last administered on 08/26/16 01: 47; Admin Dose 1 EA; Start 08/26/16 at 02:00 Miscellaneous Information 1 ea NOTE XX ; Start 08/25/16 at 18:30 Glucose (Glutose) 15 gm Q15M PRN PO DECREASED GLUCOSE; Start 08/25/16 at 18:30 Glucose (Glutose) 22.5 gm Q15M PRN PO DECREASED GLUCOSE; Start 08/25/16 at 18:30 Dextrose (D50w Syringe) 25 ml Q15M PRN IV DECREASED GLUCOSE; Start 08/25/16 at 18:30 Dextrose (D50w Syringe) 50 ml Q15M PRN IV DECREASED GLUCOSE; Start 08/25/16 at 18:30 Glucagon (Glucagen) 1 mg Q15M PRN IM DECREASED GLUCOSE; Start 08/25/16 at 18:30 Glucose (Glutose) 15 gm Q15M PRN BUCCAL DECREASED GLUCOSE; Start 08/25/16 at 18: 30 Hydralazine HCl (Apresoline) 10 mg Q6H PRN IV ELEVATED BLOOD PRESSURE; Start at 12:30; Status UNV Assessment/Plan Chief Complaint/Hosp Course ASSESSMENT AND PLAN: 61-year-old female coming in for elective left total knee replacement after many years of arthritis, POD # 1. 1. Knee replacement - POD # 1 left TKR. - Continue pain control medications and IV fluids and rehabilitation and physical therapy per orthopedic surgery recommendations. 2. Type 2 diabetes - insulin sliding scale to the regimen. 3. Hypertension - p.r.n. hydralazine to the patient's medicines for sys bp > 180 - consider slowly reintroducing her home blood pressure medicines in the next few days. 4. History of high cholesterol. Consider checking lipid panel. - Continue to monitor for now. We will continue to follow along with you. Problems: FLAVIA BAL Aug 26, 2016 12:31
[2016-08-26 21:16] VITALS: BP 127/56; RESP 20
[2016-08-27] MEDS: ACCUCHECK XX SCH (01:25)
[2016-08-27] MEDS: DEXAMETHASONE 4 MG/ML 1 ML INJ IV SCH (06:17)
[2016-08-27] MEDS: PANTOPRAZOLE (EC) 40 MG TAB PO SCH (06:17)
[2016-08-27] MEDS: ACETAMINOPHEN 1000MG/100ML IV 100 ML IVPB SCH (06:17)
[2016-08-27 06:37] LABS: ADD SCAN DIFF NO
[2016-08-27 06:55] LABS: HEMATOCRIT 33.9 % (37.0-47.0); HEMOGLOBIN 11.3 g/dl (12.0-16.0); MEAN CORPUSCULAR HEMOGLOBIN 31.9 pg (29.0-33.0); MEAN CORPUSCULAR HGB CONC 33.3 g/dl (32.0-37.0); MEAN CORPUSCULAR VOLUME 95.8 fl (82.0-101.0); MEAN PLATELET VOLUME 11.8 fl (7.4-10.4); MONOCYTE # 1.3 10^3/ul (0.3-0.9); MONOCYTES % 13.8 % (0.0-11.0); NEUTROPHIL # 6.9 10^3/ul (1.6-7.5); NEUTROPHILS % 74.8 % (39.0-77.0); PLATELET COUNT 173 10^3/UL (140-415); RED BLOOD COUNT 3.54 10^6/ul (4.20-5.40); RED CELL DISTRIBUTION WIDTH 12.7 % (11.5-14.5); WHITE BLOOD COUNT 9.3 10^3/ul (4.8-10.8)
[2016-08-27 07:31] VITALS: BP 163/76; RESP 16
[2016-08-27] MEDS: ASPIRIN (EC) 325 MG TAB PO SCH ×2 (09:21→20:35)
[2016-08-27] MEDS: DOCUSATE SODIUM 100 MG CAP PO SCH ×2 (09:21→20:36)
[2016-08-27] MEDS: CELECOXIB 200 MG CAP PO SCH ×2 (09:21→20:36)
[2016-08-27] MEDS: FERROUS FUMARATE (SR) TAB PO SCH ×2 (09:21→20:36)
[2016-08-27] MEDS: INSULIN ASPART [NOVOLOG] 3 ML PEN SC SCH ×4 (09:22→20:37)
[2016-08-27] MEDS: oxyCODONE 5 MG TAB PO PRN ×3 (09:24→17:00)
[2016-08-27 10:00] VITALS: BP 142/79; PULSE 80; RESP 16
[2016-08-27] MEDS ORDERED: VANCOMYCIN 2 GM in SOD CHLORIDE 0.9% 500 ML IVPB SCH ×2 (14:30→17:00)
--- NOTE | 2016-08-27 14:32 | PN ---
Date/Time of Note Date/Time of Note DATE: 08/27/16 TIME: 14:30 Assessment/Plan Lines/Catheters IV Catheter Type (from Nrsg): Saline Lock Osman in Place (from Nrsg): No Assessment/Plan Assessment/Plan POD # 2. Stable. Some luis alfredo-incisional redness. -Will start Vanco -Pain cocktail administered -OOB with PT -Pain meds -ASA/SCDS Subjective 24 Hr Interval Summary Resting comfortably. Sitting up in chair. Some pain. Exam/Review of Systems Vital Signs Vitals Vital Signs Date Time Temp Pulse Resp B/P Pulse Ox O2 Delivery O2 Flow Rate FiO2 08/27/16 07:31 97.6 74 16 163/76 96 08/26/16 11:55 Room Air 08/26/16 08:00 2.0 Intake and Output 08/26/16 08/26/16 08/27/16 15:00 23:00 07:00 Intake Total 1040 ml 1000 ml Output Total 600 ml 1200 ml Balance 440 ml -200 ml Exam Free Text/Dictation Dressing dry Incision clean, dry, and intact. There is some surrounding redness, particularly medially 5/5 Tibialis Anterior, EHL, Gastroc Soleus, Peroneals Normal sensation Palpable DP/PT, CR < 2 Sec No distal edema Results Result Diagram: 08/27/16 0430 ANSON CRAFT MD Aug 27, 2016 14:32
[2016-08-27] MEDS ORDERED: VANCOMYCIN IV PER PHARMACY XX SCH (15:00)
--- NOTE | 2016-08-27 17:14 | CONS ---
Date/Time of Note Date/Time of Note DATE: 08/27/16 TIME: 17:12 Consult Date/Type/Reason Admit Date/Time Aug 25, 2016 at 05:40 Subjective Worked with PT, seen by primary team. Objective Vital Signs Date Time Temp Pulse Resp B/P Pulse Ox O2 Delivery O2 Flow Rate FiO2 08/27/16 07:31 97.6 74 16 163/76 96 08/26/16 11:55 Room Air 08/26/16 08:00 2.0 Intake and Output 08/26/16 08/26/16 08/27/16 15:00 23:00 07:00 Intake Total 1040 ml 1000 ml Output Total 600 ml 1200 ml Balance 440 ml -200 ml GENERAL: The patient is lying in bed, family members at the bedside. No acute distress. HEENT: Pupils equal, round, react to light. Extraocular muscles intact. NECK: Supple, no thyromegaly. LUNGS: Clear to auscultation bilaterally. CARDIOVASCULAR: S1, S2 heard. No rubs or gallops. ABDOMEN: Soft, nontender, nondistended. Normal bowel sounds. No rebound or guarding. MUSCULOSKELETAL: some decreased range of motion of left lower extremity. NEUROLOGIC: No focal deficits. Results/Medications Result Diagram: 08/27/16 0430 Results 24 hrs Laboratory Tests Test 08/26/16 17:45 08/26/16 21:14 08/27/16 04:30 08/27/16 08:07 Bedside Glucose 182 171 171 Basophils # 0.0 Basophils % 0.0 Eosinophils # 0.0 Eosinophils % 0.0 Hematocrit 33.9 L Hemoglobin 11.3 L Lymphocytes # 1.0 Lymphocytes % 11.0 L Mean Corpuscular Hemoglobin 31.9 Mean Corpuscular Hemoglobin Concent 33.3 Mean Corpuscular Volume 95.8 Mean Platelet Volume 11.8 H Monocytes # 1.3 H Monocytes % 13.8 H Neutrophils # 6.9 Neutrophils % 74.8 Nucleated Red Blood Cells # 0.0 Nucleated Red Blood Cells % 0.0 Platelet Count 173 Red Blood Count 3.54 L Red Cell Distribution Width 12.7 White Blood Count 9.3 Test 08/27/16 12:40 08/27/16 17:05 Bedside Glucose 140 185 Medications Current Medications Oxycodone HCl (Roxicodone) 20 mg Q3H PRN PO PAIN LEVEL 8-10 Last administered on 08/27/16 17:00; Admin Dose 20 MG; Start 08/25/16 at 13:00 Oxycodone HCl (Roxicodone) 10 mg Q3H PRN PO PAIN LEVEL 4-7; Start 08/25/16 at 13 :00 Oxycodone HCl (Roxicodone) 5 mg Q3H PRN PO PAIN LEVEL 1-3; Start 08/25/16 at 13: 00 Zolpidem Tartrate (Ambien) 5 mg HS PRN PO INSOMNIA; Start 08/25/16 at 13:00 Miscellaneous Information (Note) NOTE XX ; Start 08/25/16 at 13:00 Aspirin (Ecotrin) 325 mg BID PO Last administered on 08/27/16 09:21; Admin Dose 325 MG; Start 08/26/16 at 09:00 Celecoxib (Celebrex) 200 mg BID PO Last administered on 08/27/16 09:21; Admin Dose 200 MG; Start 08/26/16 at 09:00 Dexamethasone (Decadron) 4 mg DAILY@07 IV Last administered on 08/27/16 06:17; Admin Dose 4 MG; Start 08/26/16 at 07:00; Stop 08/29/16 at 06:59 Pantoprazole (Protonix Tab) 40 mg DAILY@06 PO Last administered on 08/27/16 06: 17; Admin Dose 40 MG; Start 08/27/16 at 06:00 Docusate Sodium/ Ferrous Fumarate (Sohail-Sequels) 1 tab BID PO Last administered on 08/27/16 09:21; Admin Dose 1 TAB; Start 08/26/16 at 09:00 Docusate Sodium (Colace) 200 mg BID PO Last administered on 08/27/16 09:21; Admin Dose 200 MG; Start 08/26/16 at 09:00; Stop 08/29/16 at 08:59 Simethicone (Mylicon) 80 mg TID PRN PO DISTENSION/GAS/BLOATING; Start 08/25/16 at 13:00 Senna/Docusate Sodium (Senokot-S) 2 tab BID PRN PO CONSTIPATION; Start 08/25/16 at 13:00 Magnesium Hydroxide (Milk Of Mag) 30 ml HS PRN PO CONSTIPATION; Start 08/25/16 at 13:00 Bisacodyl (Dulcolax Supp) 10 mg DAILY PRN [place] CONSTIPATION; Start 08/25/16 at 13: 00 Sodium Biphosphate/ Sodium Phosphate (Fleet Enema) 133 ml DAILY PRN [place] CONSTIPATION; Start 08/25/16 at 13:00 Diphenhydramine HCl (Benadryl) 25 mg Q4H PRN IM ITCHING OR RASH; Start 08/25/16 at 13:00 Ketorolac Tromethamine (Toradol) 15 mg DAILY@06 PRN INJ ADMINSTER BY SURGEON ONLY; Start 08/26/16 at 06:00; Stop 08/30/16 at 05:59 Bupivacaine HCl/ Epinephrine Bitart (Marcaine 0.25%/ Epi (Sdv) 30 ml) 20 ml DAILY@06 PRN INJ ADMINSTER BY SURGEON ONLY; Start 08/26/16 at 06:00; Stop at 05:59 Naloxone HCl (Narcan) 0.2 mg Q2M PRN IV DECREASED REPIRATORY RATE; Start at 13:00 Diagnostic Test (Pha) (Accucheck) 1 ea 02 XX Last administered on 08/26/16t 01: 47; Admin Dose 1 EA; Start 08/26/16 at 02:00 Miscellaneous Information 1 ea NOTE XX ; Start 08/25/16 at 18:30 Glucose (Glutose) 15 gm Q15M PRN PO DECREASED GLUCOSE; Start 08/25/16 at 18:30 Glucose (Glutose) 22.5 gm Q15M PRN PO DECREASED GLUCOSE; Start 08/25/16 at 18:30 Dextrose (D50w Syringe) 25 ml Q15M PRN IV DECREASED GLUCOSE; Start 08/25/16 at 18:30 Dextrose (D50w Syringe) 50 ml Q15M PRN IV DECREASED GLUCOSE; Start 08/25/16 at 18:30 Glucagon (Glucagen) 1 mg Q15M PRN IM DECREASED GLUCOSE; Start 08/25/16 at 18:30 Glucose (Glutose) 15 gm Q15M PRN BUCCAL DECREASED GLUCOSE; Start 08/25/16 at 18: 30 Hydralazine HCl 10 mg 10 mg Q6H PRN IV ELEVATED BLOOD PRESSURE; Start 08/26/16 at 12:30 Vancomycin HCl/ Sodium Chloride (Vancocin/NS) 500 ml @ 125 mls/hr ONCE IVPB Last administered on 08/27/16t 17:01; Admin Dose 125 MLS/HR; Start 08/27/16 at 17: 00; Stop 08/27/16 at 20:59 Assessment/Plan Chief Complaint/Hosp Course ASSESSMENT AND PLAN: 61-year-old female coming in for elective left total knee replacement after many years of arthritis, POD # 1. 1. Knee replacement - POD # 2 left TKR. - Continue pain control medications and IV fluids and rehabilitation and physical therapy per orthopedic surgery recommendations. 2. Type 2 diabetes - insulin sliding scale to the regimen. 3. Hypertension - p.r.n. hydralazine to the patient's medicines for sys bp > 180 - consider slowly reintroducing her home blood pressure medicines in the next few days. 4. History of high cholesterol. Consider checking lipid panel. - Continue to monitor for now. We will continue to follow along with you. Problems: FLAVIA BAL Aug 27, 2016 17:14
[2016-08-27] MEDS: METOPROLOL 50 MG TAB PO SCH (18:00)
[2016-08-27 20:17] VITALS: BP 167/77; RESP 18
[2016-08-28] MEDS: ACCUCHECK XX SCH (02:09)
[2016-08-28 05:17] LABS: ADD SCAN DIFF NO
[2016-08-28 05:38] LABS: HEMATOCRIT 32.7 % (37.0-47.0); HEMOGLOBIN 10.7 g/dl (12.0-16.0); LYMPHOCYTES # 1.2 10^3/ul (0.8-2.9); LYMPHOCYTES % 18.1 % (15.0-51.0); MEAN CORPUSCULAR HEMOGLOBIN 31.8 pg (29.0-33.0); MEAN CORPUSCULAR HGB CONC 32.7 g/dl (32.0-37.0); MEAN CORPUSCULAR VOLUME 97.3 fl (82.0-101.0); MEAN PLATELET VOLUME 12.1 fl (7.4-10.4); MONOCYTE # 1.1 10^3/ul (0.3-0.9); MONOCYTES % 16.8 % (0.0-11.0); NEUTROPHIL # 4.4 10^3/ul (1.6-7.5); NEUTROPHILS % 64.5 % (39.0-77.0); PLATELET COUNT 172 10^3/UL (140-415); RED BLOOD COUNT 3.36 10^6/ul (4.20-5.40); RED CELL DISTRIBUTION WIDTH 12.6 % (11.5-14.5); WHITE BLOOD COUNT 6.8 10^3/ul (4.8-10.8)
[2016-08-28] MEDS: DEXAMETHASONE 4 MG/ML 1 ML INJ IV SCH (05:58)
[2016-08-28] MEDS: PANTOPRAZOLE (EC) 40 MG TAB PO SCH (05:58)
--- NOTE | 2016-08-28 07:40 | PN ---
Date/Time of Note Date/Time of Note DATE: 08/28/16 TIME: 07:35 Assessment/Plan VTE Prophylaxis VTE Prophylaxis Intervention: ambulation, SCD's, other (Aspirin 325 mg twice daily) Lines/Catheters IV Catheter Type (from Nrsg): Saline Lock Osman in Place (from Nrsg): No Assessment/Plan Assessment/Plan -Pain Cocktail Given -Pain cocktail drains removed. -Pain Meds as needed -Dress change performed today -ASA for DVT Prophylaxis x 6 weeks outpatient discussed. -Continue monitoring as outpatient on discharge -Follow-up at scheduled postop outpatient appointment (September 14 at 2:45 PM) or sooner if there is any issue. -Tegaderm dressings given with specific instructions to use as outpatient to keep wound dry until maryam are moved around 10 days. -Patient Stable -Discharge Home with home health after 1 more session of physical therapy and lunch. Subjective 24 Hr Interval Summary 61-year-old female postop day 3 status post left total knee replacement. Patient denies any pain. Had some luis alfredo-incisional erythema and was put on Vanco yesterday. Patient continues to do well. Up and out of bed. Patient states that she is walking throughout the hallways with walker. Patient has also climbed stairs. Denies any calf pain, chest pain or shortness of breath. Plan to discharge home today with home health. Constitutional: ambulates, no complaints Pain Control: well controlled Exam/Review of Systems Vital Signs Vitals Vital Signs Date Time Temp Pulse Resp B/P Pulse Ox O2 Delivery O2 Flow Rate FiO2 08/27/16 20:17 97.8 72 18 167/77 95 08/27/16 10:00 Room Air 08/26/16 08:00 2.0 Intake and Output 08/27/16 08/27/16 08/28/16 15:00 23:00 07:00 Intake Total 1500 ml 400 ml Output Total 900 ml Balance 600 ml 400 ml Exam Free Text/Dictation -Hemovac: Removed -Pain Cocktail Drains: Intact -Incision: Clean, Dry and Intact without any redness or drainage -10/27 Tibialis Anterior, EHL Gastrocnemius/Soleus and Peroneals -Flexing up to 90 with near full extension. -Normal Sensation -Palpable DP/PT, Capillary Refill <2 secs -No Distal Edema -Negative [place] Sign/No calf pain -Toes Freely Movable Results Result Diagram: 08/28/16 0430 NANCY LLANOS PA-C Aug 28, 2016 07:39 Date Time Temp Pulse Resp B/P Pulse Ox O2 Delivery O2 Flow Rate FiO2 08/27/16 20:17 97.8 72 18 167/77 95 08/27/16 10:00 Room Air 08/26/16 08:00 2.0 Intake and Output 08/27/16 08/27/16 08/28/16 15:00 23:00 07:00 Intake Total 1500 ml 400 ml Output Total 900 ml Balance 600 ml 400 ml Exam Free Text/Dictation -Hemovac: Removed -Pain Cocktail Drains: Intact -Incision: Clean, Dry and Intact without any redness or drainage -5/ Tibialis Anterior, EHL Gastrocnemius/Soleus and Peroneals -Flexing up to 90 with near full extension. -Normal Sensation -Palpable DP/PT, Capillary Refill <2 secs -No Distal Edema -Negative [place] Sign/No calf pain -Toes Freely Movable Results Result Diagram: 08/28/16 0430 NANCY LLANOS PA-C Aug 28, 2016 07:39
[2016-08-28] MEDS: oxyCODONE 5 MG TAB PO PRN ×2 (07:57→11:32)
[2016-08-28 08:41] VITALS: BP 136/62; RESP 18
[2016-08-28] MEDS: ASPIRIN (EC) 325 MG TAB PO SCH (09:01)
[2016-08-28] MEDS: CELECOXIB 200 MG CAP PO SCH (09:01)
[2016-08-28] MEDS: FERROUS FUMARATE (SR) TAB PO SCH (09:01)
[2016-08-28] MEDS: METOPROLOL 50 MG TAB PO SCH (09:02)
[2016-08-28] MEDS: INSULIN ASPART [NOVOLOG] 3 ML PEN SC SCH ×2 (09:03→12:33)
[2016-08-28] MEDS: DOCUSATE SODIUM 100 MG CAP PO SCH (09:04)
--- NOTE | 2016-08-28 12:06 | PN ---
Date/Time of Note Date/Time of Note DATE: 08/28/16 TIME: 11:59 Assessment/Plan VTE Prophylaxis VTE Prophylaxis Intervention: SCD's Lines/Catheters [facility] Saline Lock Urinary Cath still in place: No Assessment/Plan Assessment/Plan ASSESSMENT AND PLAN: 61-year-old female coming in for elective left total knee replacement after many years of arthritis, 1. Knee replacement 08/26/16 2. Type 2 diabetes - Suboptimal control 2/2 steroid use , A1C 7.0 3. Hypertension - improved control 4. Dyslipidemia PLAN: Resume home meds for DM / HTN / HLD Continue post op care and PT Planned for possible d/c today We will continue to follow along with you while in-house Subjective 24 Hr Interval Summary Constitutional: no complaints Exam/Review of Systems Vital Signs Vitals Vital Signs Date Time Temp Pulse Resp B/P Pulse Ox O2 Delivery O2 Flow Rate FiO2 08/28/16 08:41 98.2 67 18 136/62 96 08/27/16 10:00 Room Air 08/26/16 08:00 2.0 Intake and Output 08/27/16 08/27/16 08/28/16 15:00 23:00 07:00 Intake Total 1500 ml 400 ml Output Total 900 ml Balance 600 ml 400 ml Exam GENERAL: The patient is lying in bed, family members at the bedside. No acute distress. HEENT: Pupils equal, round, react to light. Extraocular muscles intact. NECK: Supple, no thyromegaly. LUNGS: Clear to auscultation bilaterally. CARDIOVASCULAR: S1, S2 heard. No rubs or gallops. ABDOMEN: Soft, nontender, nondistended. Normal bowel sounds. No rebound or guarding. MUSCULOSKELETAL: some decreased range of motion of left lower extremity. NEUROLOGIC: No focal deficits. Results Result Diagram: 08/28/16 0430 Results 24 hrs Laboratory Tests Test 08/27/16 12:40 08/27/16 17:05 08/27/16 20:34 08/28/16 01:35 Bedside Glucose 140 185 189 186 Test 08/28/16 04:30 08/28/16 07:47 08/28/16 11:27 Basophils # 0.0 Basophils % 0.0 Eosinophils # 0.0 Eosinophils % 0.0 Hematocrit 32.7 L Hemoglobin 10.7 L Lymphocytes # 1.2 Lymphocytes % 18.1 Mean Corpuscular Hemoglobin 31.8 Mean Corpuscular Hemoglobin Concent 32.7 Mean Corpuscular Volume 97.3 Mean Platelet Volume 12.1 H Monocytes # 1.1 H Monocytes % 16.8 H Neutrophils # 4.4 Neutrophils % 64.5 Nucleated Red Blood Cells # 0.0 Nucleated Red Blood Cells % 0.0 Platelet Count 172 Red Blood Count 3.36 L Red Cell Distribution Width 12.6 White Blood Count 6.8 # Bedside Glucose 204 208 Medications Medications Current Medications Oxycodone HCl (Roxicodone) 20 mg Q3H PRN PO PAIN LEVEL 8-10 Last administered on 08/28/16 11:32; Admin Dose 20 MG; Start 08/25/16 at 13:00 Oxycodone HCl (Roxicodone) 10 mg Q3H PRN PO PAIN LEVEL 4-7; Start 08/25/16 at 13 :00 Oxycodone HCl (Roxicodone) 5 mg Q3H PRN PO PAIN LEVEL 1-3; Start 08/25/16 at 13: 00 Zolpidem Tartrate (Ambien) 5 mg HS PRN PO INSOMNIA; Start 08/25/16 at 13:00 Miscellaneous Information (Note) NOTE XX ; Start 08/25/16 at 13:00 Aspirin (Ecotrin) 325 mg BID PO Last administered on 08/28/16 09:01; Admin Dose 325 MG; Start 08/26/16 at 09:00 Celecoxib (Celebrex) 200 mg BID PO Last administered on 08/28/16 09:01; Admin Dose 200 MG; Start 08/26/16 at 09:00 Dexamethasone (Decadron) 4 mg DAILY@07 IV Last administered on 08/28/16 05:58; Admin Dose 4 MG; Start 08/26/16 at 07:00; Stop 08/29/16 at 06:59 Pantoprazole (Protonix Tab) 40 mg DAILY@06 PO Last administered on 08/28/16 05: 58; Admin Dose 40 MG; Start 08/27/16 at 06:00 Docusate Sodium/ Ferrous Fumarate (Sohail-Sequels) 1 tab BID PO Last administered on 08/28/16 09:01; Admin Dose 1 TAB; Start 08/26/16 at 09:00 Docusate Sodium (Colace) 200 mg BID PO Last administered on 08/28/16 09:04; Admin Dose 200 MG; Start 08/26/16 at 09:00; Stop 08/29/16 at 08:59 Simethicone (Mylicon) 80 mg TID PRN PO DISTENSION/GAS/BLOATING; Start 08/25/16 at 13:00 Senna/Docusate Sodium (Senokot-S) 2 tab BID PRN PO CONSTIPATION; Start 08/25/16 at 13:00 Magnesium Hydroxide (Milk Of Mag) 30 ml HS PRN PO CONSTIPATION; Start 08/25/16 at 13:00 Bisacodyl (Dulcolax Supp) 10 mg DAILY PRN [place] CONSTIPATION; Start 08/25/16 at 13: 00 Sodium Biphosphate/ Sodium Phosphate (Fleet Enema) 133 ml DAILY PRN [place] CONSTIPATION; Start 08/25/16 at 13:00 Diphenhydramine HCl (Benadryl) 25 mg Q4H PRN IM ITCHING OR RASH; Start 08/25/16 at 13:00 Ketorolac Tromethamine (Toradol) 15 mg DAILY@06 PRN INJ ADMINSTER BY SURGEON ONLY; Start 08/26/16 at 06:00; Stop 08/30/16 at 05:59 Bupivacaine HCl/ Epinephrine Bitart (Marcaine 0.25%/ Epi (Sdv) 30 ml) 20 ml DAILY@06 PRN INJ ADMINSTER BY SURGEON ONLY; Start 08/26/16 at 06:00; Stop at 05:59 Naloxone HCl (Narcan) 0.2 mg Q2M PRN IV DECREASED REPIRATORY RATE; Start at 13:00 Diagnostic Test (Pha) (Accucheck) 1 ea 02 XX Last administered on 08/28/16 02: 09; Admin Dose 1 EA; Start 08/26/16 at 02:00 Miscellaneous Information 1 ea NOTE XX ; Start 08/25/16 at 18:30 Glucose (Glutose) 15 gm Q15M PRN PO DECREASED GLUCOSE; Start 08/25/16 at 18:30 Glucose (Glutose) 22.5 gm Q15M PRN PO DECREASED GLUCOSE; Start 08/25/16 at 18:30 Dextrose (D50w Syringe) 25 ml Q15M PRN IV DECREASED GLUCOSE; Start 08/25/16 at 18:30 Dextrose (D50w Syringe) 50 ml Q15M PRN IV DECREASED GLUCOSE; Start 08/25/16 at 18:30 Glucagon (Glucagen) 1 mg Q15M PRN IM DECREASED GLUCOSE; Start 08/25/16 at 18:30 Glucose (Glutose) 15 gm Q15M PRN BUCCAL DECREASED GLUCOSE; Start 08/25/16 at 18: 30 Hydralazine HCl (Apresoline) 10 mg Q6H PRN IV ELEVATED BLOOD PRESSURE; Start at 12:30 Metoprolol Tartrate (Lopressor) 50 mg BID PO Last administered on 08/28/16 09: 02; Admin Dose 50 MG; Start 08/27/16 at 17:15 KATE OSMAN Aug 28, 2016 12:05
[2016-08-28] MEDS ORDERED: metFORMIN 500 MG TAB PO SCH (17:55)
[2016-08-28] MEDS ORDERED: ATORVASTATIN 20 MG TAB PO SCH (21:00)
== END 2016-08-28 14:30 | disposition home health service (06) | DRG 470 ==
LOC: REC 05:40 → EDSTATUS 08:30 → MS1 14:50
PROC: 0SRD0J9 Replacement of Left Knee Joint with Synthetic Substitute, Cemented, Open Approach (ICD-10-PCS; principal; 2016-08-25 08:00)
DX: M17.12 Unilateral primary osteoarthritis, left knee (principal); Z68.42 Body mass index [BMI] 45.0-49.9, adult; I10 Essential (primary) hypertension; E11.9 Type 2 diabetes mellitus without complications; E66.01 Morbid (severe) obesity due to excess calories
CPT/HCPCS: 73560; 73562; 81001; 81003; 82962; 83036; 85025; 86850; 86900; 86901; 86920; 87086; 88304; 88311; 97110; 97116; 97162; 97166; 97530; J1940; C1776; J0131; J0330; J0360; J0690; J0735; J1100; J1815; J1885; J2250; J2274; J2405; J2710; J2795; J3010; J3301; J3370; J7040; J7120; J7121

== ENCOUNTER → 2016-08-30 | Outpatient (CLI) | payer OTHER ==
--- NOTE | 2016-08-30 15:18 | PN ---
Date/Time of Note Date/Time of Note DATE: 08/30/16 TIME: 15:11 Outpatient Progress Note Chief Complaint Increased drainage status post left total knee replacement HPI 61-year-old female 5 days postop left total knee replacement. In regards to pain, patient denies any pain complaints. Denies any calf pain, shortness of breath or chest pain. Patient has been doing well although she has been having increased drainage from the left knee. Denies any discharge presentation. Patient has developed ecchymosis surrounding the left knee. Has been performing at home physical therapy and home health nurse has been tending to patient's surgical wound. Increased concern regarding ongoing drainage. Frequent dress changes at home with gauze. Denies any fever, chills or malaise. Presents with daughter today who is translating. Review of Systems Const: No Fever, no chills, no Wt. loss, no Fatigue, normal appetite, no diaphoresis. Physical Exam General Appearance: well-developed, well-nourished, in no acute distress. Left knee: Surgical wound is clean dry and intact. Gray intact. Increased drainage from previous Hemovac site. No signs of any infection but there is ecchymosis surrounding the left knee. No tenderness to palpation on exam today. Patient able to actively flex up to 90 and extend with about 5 lag from full extension. Patient is able to ambulate with assistance using front wheeled walker. Normal sensory examination to light touch. Negative Homans sign. Allergies Coded Allergies: No Known Allergy (Unverified , 08/25/16) Assessment/Plan * Wound culture obtained today and sent off to lab. * Prophylactic prescription for Bactrim DS 1 tab p.o. twice daily 10 days #20 tablets provided for patient. * Patient advised to follow-up tomorrow so that wound VAC may be applied due to increased drainage. * Dress change performed today in office with additional gauze provided to patient. * Follow-up tomorrow for wound VAC application * Continue DVT prophylaxis * Continue pain medications as needed * Continue at home therapy Dr. Garcia has also seen patient and agrees with plan. Medications Home Meds Reported Medications Metformin* (Glucophage*) 500 Mg Tab, 500 MG PO BID, #60 08/25/16 Hydrochlorothiazide* (Hydrochlorothiazide*) 50 Mg Tab, 50 MG PO DAILY, #30 08/25/16 Metoprolol Tartrate* (Lopressor*) 50 Mg Tab, 50 MG PO BID, #60 08/25/16 Simvastatin (Simvastatin) 40 Mg Tablet, 40 MG PO HS, #60 08/25/16 NANCY LLANOS PA-C Aug 30, 2016 15:18
== END | disposition home or self-care (01) ==
LOC: HKI 13:40
DX: Z47.1 Aftercare following joint replacement surgery (principal); Z96.652 Presence of left artificial knee joint

== ENCOUNTER → 2016-08-31 | Outpatient (CLI) | payer OTHER ==
--- NOTE | 2016-08-31 16:14 | PN ---
Date/Time of Note Date/Time of Note DATE: 08/31/16 TIME: 16:09 Outpatient Progress Note Chief Complaint 6 days postop left total knee replacement. Increased drainage to the left knee at drain site. HPI 61-year-old female presents today for repeat evaluation regarding increased drainage to the left knee status post knee replacement on 08/25/2016. Seen yesterday and wound VAC ordered. Wound VAC is present today for application. Continues with increased drainage. No discharge. Denies any pain to the left knee. Patient is up and walking with assisted ambulation using front-wheeled walker. Denies any calf pain, shortness of breath or chest pain/tightness. Presents for application of wound VAC. Review of Systems Const: No Fever, no chills, no Wt. loss, no Fatigue, normal appetite, no diaphoresis. Physical Exam Blood pressure is 148/65, temperature is 98, pulse is 53, respiratory rate is 12, height is 5 feet, weight is 253 pounds. General Appearance: well-developed, well-nourished, in no acute distress. Left knee: Continued drainage from Hemovac drain site on the lateral compartment of the knee. Surgical wound is clean dry and intact. No signs of infection. Ecchymosis surrounding wound. Patient is able to flex up to 110. About 5 lag from full extension. No tenderness to palpation. Normal sensory examination to light touch. Negative Homans sign. Assisted ambulation using front-wheeled walker. Allergies Coded Allergies: No Known Allergy (Unverified , 08/25/16) Assessment/Plan * Wound VAC to the left knee applied today. Instructions regarding wound VAC discussed in detail. * Continue pain medication as needed. * DVT prophylaxis with aspirin 325 mg twice daily. * Patient will follow up on 09/05/2016 for repeat evaluation and removal of wound VAC. * Continue at home physical therapy. * Continue antibiotic that was prescribed on 08/30/2016. Dr. Garcia is also seen patient today and agrees with plan. Medications Home Meds Reported Medications Metformin* (Glucophage*) 500 Mg Tab, 500 MG PO BID, #60 08/25/16 Hydrochlorothiazide* (Hydrochlorothiazide*) 50 Mg Tab, 50 MG PO DAILY, #30 08/25/16 Metoprolol Tartrate* (Lopressor*) 50 Mg Tab, 50 MG PO BID, #60 08/25/16 Simvastatin (Simvastatin) 40 Mg Tablet, 40 MG PO HS, #60 08/25/16 NANCY LLANOS PA-C Aug 31, 2016 16:14
== END | disposition home or self-care (01) ==
LOC: HKI 14:30
DX: Z47.1 Aftercare following joint replacement surgery (principal); Z96.652 Presence of left artificial knee joint
CPT/HCPCS: 97607

== ENCOUNTER → 2016-09-05 | Outpatient (CLI) | payer OTHER ==
--- NOTE | 2016-09-05 17:01 | PN ---
Date/Time of Note Date/Time of Note DATE: 09/05/16 TIME: 16:53 Outpatient Progress Note Chief Complaint 11 days s/p L TKR with increased drainage. HPI 61-year-old female presents for one-week follow-up regarding increased drainage status post left total knee replacement performed on 08/25/2016. Wound VAC applied on 08/31/2016. Patient presents with daughter today. Patient and patient 's daughter state that they have seen no drainage since application of wound VAC. Denies any increased redness. Bruising to the left knee continues to improve. No calf pain. No shortness of breath, chest pain/tightness. Continues with edema to the left lower extremity. Patient states that her range of motion is improving with at home physical therapy. No pain with weightbearing/ambulation. Uses front wheeled walker for assisted ambulation. No falls. Review of Systems Const: No Fever, no chills, no Fatigue, normal appetite, no diaphoresis. Resp: No SOB, no wheezing, no chest pain. CV: No chest pain, no palpitaions, no HUTSON. Physical Exam General Appearance: well-developed, morbidly obese with enlarged pannus, well- nourished, in no acute distress. Left knee: No drainage to wound VAC. Ecchymosis surrounding the left knee continues to improve. No tenderness to palpation. Patient is able to actively flex and extend with 0-110 range of motion. 5/5 strength on resistance with flexion/extension. No calf pain. Negative Homans sign. Assisted ambulation using front wheeled walker. Continues to improve. Allergies Coded Allergies: No Known Allergy (Unverified , 08/25/16) Assessment/Plan * Wound VAC removed today * Continue antibiotics in regards to Bactrim DS until she has completed medication. * Staple removal performed today. Steri-Strips applied. * Wound culture has returned and is negative with no growth of any bacteria. * Continue at home physical therapy. * Follow-up at [address] Garcia was present and has also seen patient. Agrees with plan. Medications Home Meds Reported Medications Metformin* (Glucophage*) 500 Mg Tab, 500 MG PO BID, #60 08/25/16 Hydrochlorothiazide* (Hydrochlorothiazide*) 50 Mg Tab, 50 MG PO DAILY, #30 08/25/16 Metoprolol Tartrate* (Lopressor*) 50 Mg Tab, 50 MG PO BID, #60 08/25/16 Simvastatin (Simvastatin) 40 Mg Tablet, 40 MG PO HS, #60 08/25/16 NANCY LLANOS PA-C Sep 05, 2016 17:01
== END | disposition home or self-care (01) ==
LOC: HKI 15:10
DX: Z47.1 Aftercare following joint replacement surgery (principal); Z96.652 Presence of left artificial knee joint

== ENCOUNTER → 2016-09-13 | Outpatient (CLI) | payer OTHER ==
--- NOTE | 2016-09-13 15:08 | PN ---
Date/Time of Note Date/Time of Note DATE: 09/13/16 TIME: 15:03 Outpatient Progress Note Chief Complaint 3 week postop left total knee replacement on 08/25/2016. HPI 61-year-old female presents today for 3 week postop visit status post left total knee arthroplasty on 08/25/2016. Patient was last seen on 09/05/2016. Wound VAC was removed on last visit due to increased drainage at Hemovac site. Denies any complications. Patient is also finished course of Bactrim DS antibiotic. Denies any discharge to the wound. Yesterday, patient experienced severe pain exacerbation especially with weightbearing/activity. Taking Parkin which provided minimal relief yesterday. Today patient states that pain is significantly improved and has stabilized. Has not taken any pain medication today. No need. Continues with at home therapy. Range of motion continues to improve. No falls. Review of Systems Const: No Fever, no chills, no Fatigue, normal appetite, no diaphoresis. Resp: No SOB, no wheezing, no chest pain. CV: No chest pain, no palpitaions, no HUTSON. Physical Exam Blood pressure 156/70, temperature is 97.9, pulse is 65, respiratory rate is 12 , height is 5 feet, weight 253 pounds General Appearance: well-developed, well-nourished, in no acute distress. Left knee: Assisted ambulation using front-wheeled walker. No antalgic gait on exam today. Patient is able to flex up to 120 with about 5 lag from full extension. 5/5 strength on resistance. Wound site is clean dry and intact and healing well. No signs of infection. Negative Homans sign. Continued improvement since last visit. Drain sites have now closed. Allergies Coded Allergies: No Known Allergy (Unverified , 08/25/16) Assessment/Plan -Wound healing well after staple removal. No signs of infection. -Continue ASA 325 mg twice daily for DVT prophylaxis until 6 weeks status post surgery. -No signs of DVT. -Patient progressing well. -Patient is almost out of Parkin. Prescription for Parkin 5/325 mg 1 tab p.o. every 6 hours as needed severe pain only provided today. #45 tablets given. -Advised to initiate outpatient physical therapy with improvement in gait training with hopes to return to independent ambulation. Increase strengthening and functionality to the left knee status post surgery. -Follow-up at 6 week postop appointment. X-rays will be performed at 6 weeks postoperative appointment. -Patient made aware that they may follow-up sooner, should they experience any issues or complications as we will be glad to see them. -Order for outpatient physical therapy given today with focus on improved range of motion. Antibiotic card provided for patient. Patient made aware that dental prophylaxis will be necessary prior to any dental procedure for the remainder of their lifetime. Patient is aware that they must contact their dentist prior to any procedure to inform them of previous joint replacement with prosthesis implant so appropriate antibiotic may be prescribed to lower risk of joint infection status post surgery. Card will also serve as confirmation should patient be traveling and have to go through security such as at an airport. Dr. Garcia present during exam. Agrees with plan. Medications Home Meds Reported Medications Metformin* (Glucophage*) 500 Mg Tab, 500 MG PO BID, #60 08/25/16 Hydrochlorothiazide* (Hydrochlorothiazide*) 50 Mg Tab, 50 MG PO DAILY, #30 08/25/16 Metoprolol Tartrate* (Lopressor*) 50 Mg Tab, 50 MG PO BID, #60 17 Simvastatin (Simvastatin) 40 Mg Tablet, 40 MG PO HS, #60 17 NANCY LLANOS PA-C Sep 13, 2016 15:08
== END | disposition home or self-care (01) ==
LOC: HKI 14:28
DX: Z47.1 Aftercare following joint replacement surgery (principal); Z96.652 Presence of left artificial knee joint

== ENCOUNTER → 2016-10-03 | Outpatient (CLI) | payer OTHER ==
--- NOTE | 2016-10-03 16:14 | PN ---
Date/Time of Note Date/Time of Note DATE: 10/03/16 TIME: 16:06 Outpatient Progress Note Chief Complaint 6 weeks status post left total knee replacement on 08/25/2016. HPI 61-year-old female presents today for postoperative follow-up for 6 week postop visit status post left total knee arthroplasty on 08/25/2016. Patient comes in about 2-3 days early as she experienced significant pain over the weekend with erythema over the left knee. Since onset, patient states that pain has significantly decreased as well as erythema has been self-limiting. She states that at the time of pain, nothing was helping, even her [place]. Denies any falls. No discharge. Presents with daughter today who is also translating today's visit. Overall in regards to functionality, patient continues to progress. Review of Systems Const: No Fever, no chills, no Fatigue, normal appetite, no diaphoresis. Resp: No SOB, no wheezing, no chest pain. CV: No chest pain, no palpitaions, no HUTSON. Physical Exam Blood pressure is 146/66, temperature is 98.4, pulse 76, respiratory rate 12, height 5 feet, weight 253 pounds. General Appearance: well-developed, well-nourished, in no acute distress. Left knee surgical wound healing well. No signs of any complication. No erythema. Mild increased temperature to palpation. Patient has full range of motion on active extension and flexion. 5/5 strength with resistance on flexion /extension. Negative Homans sign. No calf pain. Normal sensory examination to light touch. Tenderness to palpation along the lateral compartment. Tenderness is mild. Imaging: X-ray of the left knee performed on 10/03/2016 showing all components appearing well aligned, attached and integrated to the bone. No signs of any lucency between metal and bone. Allergies Coded Allergies: No Known Allergy (Unverified , 08/25/16) Assessment/Plan -Patient progressing well -Surgical wound continues to heal well. -No signs of infection but given patient had increased erythema with pain status post surgery, prophylactic steps will be taken place and amoxicillin provided for patient today. No sign of DVT on exam. -Amoxicillin 500 mg 3 times daily 7 days provided for patient today #21 tablets. -X-rays showing no abnormalities in regards to prosthesis attachment to bone. -Range of motion is improved status post total knee replacement. -Antibiotic prophylaxis card provided on last visit. -Follow-up 6 months status post surgery. If patient is doing well at that time , possible follow-up on as-needed basis from that point. Dental prophylaxis discussed in detail today. Patient given prophylaxis card with antibiotic options. Should patient have allergy to specific medication ( eg penicillin) alternative options are also provided on the card. Patient is aware that antibiotics should be taken prior to any procedures to prevent increased risk of infection to the joint. Patient is aware that this will be for the rest of their life. Patient states understanding and compliance. Dr. Garcia is also seen patient and agrees with plan. Medications Home Meds Reported Medications Metformin* (Glucophage*) 500 Mg Tab, 500 MG PO BID, #60 08/25/16 Hydrochlorothiazide* (Hydrochlorothiazide*) 50 Mg Tab, 50 MG PO DAILY, #30 08/25/16 Metoprolol Tartrate* (Lopressor*) 50 Mg Tab, 50 MG PO BID, #60 17 Simvastatin (Simvastatin) 40 Mg Tablet, 40 MG PO HS, #60 17 NANCY LLANOS PA-C Oct 03, 2016 16:14
--- NOTE | 2016-10-03 16:25 | RADRPT ---
PROCEDURE: Left knee radiographs. CLINICAL INDICATION: Left knee pain. Postop. TECHNIQUE: Three views. Weight bearing. Frontal, lateral, and patellar view. COMPARISON: 08/25/2016. FINDINGS: There is no fracture or dislocation. Anterior skin maryam and surgical drains have been removed. There is a total left knee constrained arthroplasty which appears satisfactory. There is no lytic or blastic lesion. There is no joint effusion. IMPRESSION: 1. Satisfactory postoperative appearance of the left knee. RPTAT: QQ .Brian Paul MD, MD Date Time Electronically viewed and signed by .Brian Paul MD, MD on 10/03/2016 16:24 .R/
== END | disposition home or self-care (01) ==
LOC: HKI 14:43
DX: Z47.1 Aftercare following joint replacement surgery (principal); M25.562 Pain in left knee; Z96.652 Presence of left artificial knee joint

== ENCOUNTER → 2016-11-07 | Outpatient (CLI) | payer OTHER ==
--- NOTE | 2016-11-08 03:20 | HKNOTE ---
DATE OF SERVICE: 11/07/2016 NEW CONDITION MAIN COMPLAINT: Injury to the left knee following a fall. HISTORY OF MAIN COMPLAINT: The patient is a 61-year-old female who underwent a left knee replacemen t on 08/25/2016. She was doing extremely well. About a week ago, she tripped and fell in her house, landing on her l eft side. She was helped up by her family. She went to see Dr. Melgar, her primary care. X-rays wer e ordered, and she was referred back to me for an evaluation. PHYSICAL EXAMINATION: VITAL SIGNS: Height 5 feet, weight 253 pounds, blood pressure 152/70, temperature 98.3. RIGHT KNEE: An excellent full range of motion without pain. No external sign of injury. No ecchym osis, no skin abrasions. IMAGING: Plain x-rays of the right knee brought with her were reviewed. These show a knee replacem ent with all components well attached to the bone and well aligned. No sign of injury to the bone or to the implant. A small fragment of bone is seen within the medial collateral ligament. Probably part of the ostial periosteal flap lifted up at surgery. It is not a loose body. MANAGEMENT: Given reassurance. We will continue with her physical therapy. She will be seen again as per her previous appointment. Dictated By: LUBA RUIZ/JASMEET Conf#: [id number] DID#: [id number]
== END | disposition home or self-care (01) ==
LOC: HKI 15:12
DX: S89.92XA Unspecified injury of left lower leg, initial encounter (principal); W01.0XXA Fall on same level from slipping, tripping and stumbling without subsequent striking against object, initial encounter; Y92.009 Unspecified place in unspecified non-institutional (private) residence as the place of occurrence of the external cause; Z96.652 Presence of left artificial knee joint
CPT/HCPCS: G0463